=== PATIENT | male | born 1975 | race Caucasian/White ===

== ENCOUNTER 2020-01-25 00:04 | Day surgery (SDC) | payer BC ==
[~2020-01-25 00:04] MED LIST: Antivert25 MG PO; INVOKANA100 MG PO; LISI5 PO; Zofran4 MG PO
[2020-01-25] MEDS ORDERED: METF500 PO (08:07)
== END 2020-01-25 09:10 | disposition home or self-care (01) ==
LOC: ATC 00:04
DX: E27.40 Unspecified adrenocortical insufficiency (principal); I12.9 Hypertensive chronic kidney disease with stage 1 through stage 4 chronic kidney disease, or unspecified chronic kidney disease; E11.22 Type 2 diabetes mellitus with diabetic chronic kidney disease; N18.2 Chronic kidney disease, stage 2 (mild); D63.1 Anemia in chronic kidney disease; M32.9 Systemic lupus erythematosus, unspecified; M10.9 Gout, unspecified; E78.00 Pure hypercholesterolemia, unspecified; E86.9 Volume depletion, unspecified; E11.21 Type 2 diabetes mellitus with diabetic nephropathy; Z79.84 Long term (current) use of oral hypoglycemic drugs; Z79.899 Other long term (current) drug therapy
CPT/HCPCS: 36415; 80400; 82533; 96372; J0834